=== PATIENT | male | born 1975 | race African-American/Black ===

== ENCOUNTER 2017-02-19 14:52 | Emergency (ER) | payer MEDICARE, OTHER ==
[~2017-02-19] VITALS: Ht 180.3 cm; Wt 77.3 kg
[~2017-02-19 14:52] MED LIST: ADV250 IH; ALBU8HFA4 IH; AMLO-511 PO; AMOX500C2 PO; BENZ1I PO; CLON.5 PO; LEVE500T53 PO; METO25 PO; ZIPR60CA2 PO
[2017-02-19] MEDS ORDERED: PALI6 PO (16:55)
[2017-02-19] MEDS ORDERED: QUET200T PO (16:55)
[2017-02-19] MEDS ORDERED: LORA1TAB3 PO (16:55)
[2017-02-19] MEDS ORDERED: DIPH12.54 PO (16:55)
[2017-02-19] MEDS ORDERED: ACET650S25 PO (16:55)
[2017-02-19] MEDS ORDERED: CARV12 PO (16:55)
[2017-02-19] MEDS ORDERED: MOM30 PO (16:55)
[2017-02-19 18:00] VITALS: BP 134/81
[2017-02-19 18:03] LABS: GLUCOSE,POINT OF CARE 100 MG/DL (70-110)
== END 2017-02-19 19:17 | disposition home or self-care (01) ==
LOC: EMS 14:54
DX: F25.9 Schizoaffective disorder, unspecified (principal); F41.9 Anxiety disorder, unspecified; F31.9 Bipolar disorder, unspecified; I10 Essential (primary) hypertension; F17.210 Nicotine dependence, cigarettes, uncomplicated; F12.90 Cannabis use, unspecified, uncomplicated
CPT/HCPCS: 82948; 82962; 93005; 99283; 99284